=== PATIENT | female | born 1960 | race Two or more races ===

== ENCOUNTER 2018-01-10 08:55 | Outpatient (CLI) | payer OTHER | END 2018-01-10 10:44 | disposition home or self-care (01) | LOC: RAD 08:55 | DX: M16.12 Unilateral primary osteoarthritis, left hip (principal) ==

== ENCOUNTER 2021-08-24 11:11 | Outpatient (CLI) | payer OTHER | END 2021-08-24 11:12 | disposition home or self-care (01) | LOC: NUCLEAR 11:11 | PROVIDERS: ATTEND Internal Medicine Endocrinology, Diabetes & Metabolism | DX: M81.0 Age-related osteoporosis without current pathological fracture (principal) ==